=== PATIENT | female | born 1935 | race African-American/Black ===

== ENCOUNTER 2023-08-19 15:32 | Inpatient (IN) | payer MEDICARE, BC ==
[~2023-08-19] VITALS: Ht 160 cm; Wt 51.5 kg
[2023-08-19] MEDS: LORazepam 2MG/ML-1ML VIAL ONE (16:21)
[2023-08-19] MEDS: LORazepam 2MG/ML-1ML VIAL IV ONE (16:22)
[2023-08-19 16:25] VITALS: PULSE 105; RESP 23; O2SAT 93
[2023-08-19] MEDS ORDERED: LORazepam 2MG/ML-1ML VIAL IV PRN (16:30)
[2023-08-19 16:37] LABS: Urine Bacteria None Seen /hpf (None Seen)
[2023-08-19 16:55] LABS: Urine Amorphous Crystal FEW /hpf (None Seen); Urine Blood Negative /uL (Negative); Urine Clarity Clear (Clear); Urine Color Light-Yellow (Yellow); Urine Protein, UAD 1+ (Negative); Urine Specific Gravity 1.014 (1.001-1.035); Urine Urobilinogen Normal (Negative); Urine WBC 2 /hpf (0 - 5); Urine pH 6.5 (5.0-9.0)
[2023-08-19] MEDS: SODIUM CHLORIDE 0.9% 1,000 ML IV ONE (17:00)
[2023-08-19] MEDS: PIPERACILLIN-TAZOB 3.375GM 100 ML IV ONE (17:00)
[2023-08-19 17:31] LABS: Basophils # (auto) 0 10 ^3/uL (0-0.2); Eosinophils # (auto) 0 10 ^3/uL (0-0.8); Nucleated Red Blood Cells % 0.1 %
[2023-08-19 17:34] LABS: Basophils % (auto) 0.2 % (0.0-2.0); Lymphocytes # (auto) 0.9 10 ^3/uL (0.4-5.4); Lymphocytes % (auto) 5.2 % (10.0-50.0); Mean Corpuscular Hemoglobin 27.5 pg (28.0-32.0); Mean Corpuscular Volume 91.7 fL (80.0-100.0); Monocytes # (auto) 0.9 10 ^3/uL (0-1.3); Monocytes % (auto) 5.6 % (0.0-12.0); Neutrophils # (auto) 14.8 10 ^3/uL (1.6-8.6); Red Blood Cells 2.08 10^6/uL (4.0-5.20); White Blood Cell 16.7 10^3/uL (4.4-10.8)
[2023-08-19 17:35] LABS: Hemoglobin 5.7 g/dL (12.2-16.2)
[2023-08-19 17:51] LABS: Alanine Aminotransferase 26 U/L (7-40); Albumin 2.7 g/dL (3.2-4.8); Alkaline Phosphatase 94 U/L (46-116); Anion Gap 10 (5-15); Aspartate Aminotransferase 33 U/L (13-40); BUN/Creatinine Ratio 15.3 (10.0-20.0); Blood Urea Nitrogen 23 mg/dL (9-23); Calcium 8.1 mg/dL (8.7-10.4); Carbon Dioxide 19 mmol/L (20-30); Chloride 116 mmol/L (98-107); Glucose 103 mg/dL (74-106); Lipase 32 U/L (12-53); Magnesium 2.7 mg/dL (1.6-2.6); Sodium 145 mmol/L (136-145)
[2023-08-19 17:52] LABS: Bilirubin, Total < 0.2 mg/dL (0.2-1.0); Total Protein 5.9 g/dL (5.7-8.2)
[2023-08-19 18:31] LABS: Lactic Acid w/Reflex 5.7 mmol/L (0.4-2.0)
[2023-08-19] MEDS: ALBUTEROL SULF 2.5 MG/0.5ML(0.5%) NEB SOLN NEB ONE (19:14)
[2023-08-19 19:52] LABS: Base Excess -3.7 mmol/L (-2.0-2.0)
[2023-08-19 20:11] LABS: Anisocytosis Moderate; Ovalocytes FEW; Platelet Estimate Increased
[2023-08-19] MEDS: CALCIUM GLUC 1,000mg/50ml-NS 50 ML IV ONE (21:01)
[2023-08-19] MEDS: DEXTROSE (50%) 50ML SYRG IV ONE (21:11)
[2023-08-19] MEDS: SODIUM BICARB 8.4% 50Meq/50ml SYR INJ IV ONE (21:12)
[2023-08-19] MEDS: InsuLIN REG 1unit/0.01ml Soln (100units/ml) IV ONE (21:12)
[2023-08-19] MEDS: FUROSEMIDE 20 MG/2 ML VIAL IV ONE (21:26)
[2023-08-19] MEDS: SODIUM ZIRCONIUM CYCL 10 GM PAK PO ONE (21:27)
[2023-08-19] MEDS ORDERED: ONDANSETRON HCL 4 MG/2 ML VIAL IV PRN (21:45)
[2023-08-19] MEDS ORDERED: ACETAMINOPHEN 325 MG TAB PO PRN (21:45)
[2023-08-19] MEDS ORDERED: NITROGLYCERIN 0.4 MG SL TAB SL PRN (21:45)
[2023-08-19] MEDS ORDERED: MORPHINE SULFATE INJ 2 MG/ml SYRG IV PRN (21:45)
[2023-08-19] MEDS: ALBUMIN 25% 100 ML IV ONE (21:55)
[2023-08-19] MEDS: CLINDAMYCIN 600MG IV 50 ML IV SCH (22:43)
[2023-08-19] MEDS: SODIUM CHLORIDE 0.9% 1,000 ML IV SCH (23:02)
[2023-08-19 23:23] VITALS: BP 131/53; PULSE 94; RESP 20; TEMP 97.8
[2023-08-19 23:57] VITALS: BP 138/53; PULSE 95; RESP 15; TEMP 97.5
[2023-08-20] VITALS (13 sets, daily range): BP systolic 108–131; BP diastolic 50–75; PULSE 75–91; RESP 16–20; TEMP 97.4–98.6; O2SAT 93–100
[2023-08-20] MEDS: cefTRIAXone 1GM/50ML D5W 50 ML IV SCH (09:45)
[2023-08-20] MEDS: ASPirin 81 mg TAB PO SCH (09:45)
[2023-08-20 10:46] LABS: Basophils # (auto) 0 10 ^3/uL (0-0.2); Basophils % (auto) 0.1 % (0.0-2.0); Eosinophils # (auto) 0 10 ^3/uL (0-0.8); Eosinophils % (auto) 0.1 % (0.0-7.0); Hematocrit 28.2 % (36.0-46.0); Lymphocytes # (auto) 1.3 10 ^3/uL (0.4-5.4); Lymphocytes % (auto) 11.1 % (10.0-50.0); Mean Corpuscular Hemoglobin 28.5 pg (28.0-32.0); Mean Corpuscular Hgb Conc. 31.9 g/dL (32.0-36.0); Mean Corpuscular Volume 89.3 fL (80.0-100.0); Monocytes # (auto) 0.8 10 ^3/uL (0-1.3); Monocytes % (auto) 7.2 % (0.0-12.0); Neutrophils # (auto) 9.6 10 ^3/uL (1.6-8.6); Neutrophils % (auto) 81.5 % (37.0-80.0); Red Blood Cells 3.16 10^6/uL (4.0-5.20); White Blood Cell 11.7 10^3/uL (4.4-10.8)
[2023-08-20 11:03] LABS: Alanine Aminotransferase 21 U/L (7-40); Alkaline Phosphatase 82 U/L (46-116); Calcium 8.3 mg/dL (8.5-10.1)
[2023-08-20 11:04] LABS: Albumin 3.2 g/dL (3.2-4.8); Anion Gap 9 (5-15); Aspartate Aminotransferase 25 U/L (13-40); BUN/Creatinine Ratio 13.3 (10.0-20.0); Bilirubin, Total 0.5 mg/dL (0.2-1.0); Blood Urea Nitrogen 16 mg/dL (9-23); Carbon Dioxide 22 mmol/L (20-30); Chloride 116 mmol/L (98-107); Glucose 89 mg/dL (74-106); Potassium 4.1 mmol/L (3.5-5.1); Sodium 147 mmol/L (136-145); Total Protein 5.9 g/dL (5.7-8.2)
[2023-08-20] MEDS: FLEET ENEMA(ADULT) 135 ML PR ONE (17:58)
[2023-08-20] MEDS: LACTULOSE 10g/15ml SOLN 473ML PR ONE (17:58)
[2023-08-20] MEDS ORDERED: LOSA-534 PO (19:29)
[2023-08-20] MEDS ORDERED: QUET50TA PO (19:29)
[2023-08-20] MEDS ORDERED: LEV50T PO (19:29)
[2023-08-20] MEDS ORDERED: AMLO1TAB23 PO (19:29)
[2023-08-20] MEDS ORDERED: ASPI-498 OR (19:29)
[2023-08-20] MEDS ORDERED: LORazepam 2MG/ML-1ML VIAL IV PRN ×2 (22:45→23:00)
[2023-08-20 23:24] LABS: LDL Cholesterol 96 mg/dL (< 100); Triglycerides 73 mg/dL (< 150)
[2023-08-20 23:25] LABS: HDL Cholesterol 45 mg/dL (40-59)
[2023-08-20 23:26] LABS: Cholesterol 157 mg/dL (< 200)
[2023-08-21] VITALS (8 sets, daily range): BP systolic 107–140; BP diastolic 35–71; PULSE 73–90; RESP 16–21; TEMP 98.5–98.9; O2SAT 94–100
[2023-08-21 06:40] LABS: Basophils # (auto) 0 10 ^3/uL (0-0.2); Basophils % (auto) 0.1 % (0.0-2.0); Eosinophils # (auto) 0 10 ^3/uL (0-0.8); Eosinophils % (auto) 0.1 % (0.0-7.0); Hematocrit 29.4 % (36.0-46.0); Hemoglobin 9.4 g/dL (12.2-16.2); Lymphocytes # (auto) 0.9 10 ^3/uL (0.4-5.4); Lymphocytes % (auto) 9.2 % (10.0-50.0); Mean Corpuscular Hemoglobin 28.9 pg (28.0-32.0); Mean Corpuscular Volume 90.4 fL (80.0-100.0); Monocytes # (auto) 0.7 10 ^3/uL (0-1.3); Neutrophils # (auto) 8.2 10 ^3/uL (1.6-8.6); Neutrophils % (auto) 83.6 % (37.0-80.0); Nucleated Red Blood Cells % 0.1 %; Red Blood Cells 3.25 10^6/uL (4.0-5.20); White Blood Cell 9.8 10^3/uL (4.4-10.8)
[2023-08-21 06:47] LABS: Anion Gap 10 (5-15); Carbon Dioxide 19 mmol/L (20-30); Chloride 120 mmol/L (98-107); Potassium 4.6 mmol/L (3.5-5.1); Sodium 149 mmol/L (136-145)
[2023-08-21 06:48] LABS: Calcium 7.8 mg/dL (8.5-10.1)
[2023-08-21 06:51] LABS: Red Cell Distribution Width 20.2 % (11.8-14.3)
[2023-08-21 06:52] LABS: Glucose 83 mg/dL (74-106)
[2023-08-21 06:53] LABS: Triglycerides 84 mg/dL (< 150)
[2023-08-21 06:54] LABS: LDL Cholesterol 96 mg/dL (< 100)
[2023-08-21 06:55] LABS: Cholesterol 162 mg/dL (< 200); HDL Cholesterol 49 mg/dL (40-59)
[2023-08-21 07:29] LABS: BUN/Creatinine Ratio 9.2 (10.0-20.0); Blood Urea Nitrogen 11 mg/dL (9-23)
[2023-08-21] MEDS: ASPirin 81 mg TAB PO SCH (09:05)
[2023-08-21] MEDS: levETIRAcetam 500 MG/5ML ORAL SOLN UD GT SCH (09:06)
[2023-08-21] MEDS: D5W 5% 1,000 ML IV SCH (09:45)
[2023-08-22] VITALS (8 sets, daily range): BP systolic 101–137; BP diastolic 55–69; PULSE 59–92; RESP 17–21; TEMP 97.5–98.7; O2SAT 94–100
[2023-08-22] MEDS: ATORVASTATIN 20 MG TAB PO SCH (00:01)
[2023-08-22] MEDS: levETIRAcetam 500 MG/5ML ORAL SOLN UD PO SCH (00:01)
[2023-08-22] MEDS ORDERED: levETIRAcetam 500 MG/5ML ORAL SOLN UD PO SCH (10:00)
[2023-08-22] MEDS: levoFLOXacin 500MG 100 ML IV ONE ×2 (10:40→10:44)
[2023-08-23 04:52] VITALS: BP 114/42; PULSE 91; RESP 18; TEMP 97.9; O2SAT 93
[2023-08-23 08:15] VITALS: PULSE 88
[2023-08-23 08:26] VITALS: BP 110/69; PULSE 81; RESP 16; TEMP 98.9; O2SAT 93
[2023-08-23] MEDS: levoFLOXacin 250MG 50 ML IV SCH (08:37)
[2023-08-23 13:06] VITALS: BP 103/66; PULSE 55; RESP 19; TEMP 98.4; O2SAT 95
[2023-08-23 20:00] VITALS: PULSE 88
[2023-08-23] MEDS: LINEZOLID 600MG/300ML 300 ML IV SCH (23:13)
[2023-08-24] VITALS (7 sets, daily range): BP systolic 121–147; BP diastolic 60–79; PULSE 82–92; RESP 16–20; TEMP 97.8–99; O2SAT 94–100
[2023-08-24 14:09] LABS: Chloride 111 mmol/L (98-107); Potassium 4.1 mmol/L (3.5-5.1); Sodium 139 mmol/L (136-145)
[2023-08-24 14:10] LABS: Anion Gap 8 (5-15); Carbon Dioxide 20 mmol/L (20-30)
[2023-08-24 14:15] LABS: BUN/Creatinine Ratio 8.8 (10.0-20.0); Blood Urea Nitrogen 10 mg/dL (9-23); Glucose 131 mg/dL (74-106)
[2023-08-24 15:44] LABS: Hematocrit 32.5 % (36.0-46.0); Hemoglobin 10.2 g/dL (12.2-16.2); Mean Corpuscular Hgb Conc. 31.4 g/dL (32.0-36.0); Mean Corpuscular Volume 92.3 fL (80.0-100.0); Red Blood Cells 3.52 10^6/uL (4.0-5.20); White Blood Cell 8.4 10^3/uL (4.4-10.8)
[2023-08-24 15:48] LABS: Basophils % (manual) 0 (0.0-2.0); Blast Cells 0; Eosinophils % (manual) 0 (0-7); Metamyelocytes % 0; Myelocytes % 0; Promyelocytes % 0; Reactive Lymphocytes 0
[2023-08-24 17:00] LABS: Anisocytosis Slight; Band Neutrophils % (manual) 4; Lymphocytes % (manual) 12 (10.0-50.0); Monocytes % (manual) 6 (0-12); Platelet Estimate Adequate
[2023-08-24 17:02] LABS: Tear Drop Cells FEW
[2023-08-25] VITALS (9 sets, daily range): BP systolic 127–152; BP diastolic 51–86; PULSE 73–91; RESP 16–18; TEMP 36.6; O2SAT 96–100
[2023-08-25] MEDS ORDERED: LINE1TAB6 PO (08:41)
[2023-08-25] MEDS ORDERED: LEVO500T91 PO (08:41)
[2023-08-25] MEDS ORDERED: LEVE500T40 PO (08:44)
[2023-08-25 15:21] LABS: COVID19 ANTIGEN SOFIA FIA NEGATIVE (NEGATIVE)
[2023-08-26] VITALS (8 sets, daily range): BP systolic 123–151; BP diastolic 59–84; PULSE 83–89; RESP 16–20; TEMP 97.5–98.6; O2SAT 94–100
[2023-08-27] VITALS (7 sets, daily range): BP systolic 123–148; BP diastolic 59–81; PULSE 75–91; RESP 16–20; TEMP 97.6–98.1; O2SAT 93–99
[2023-08-28 01:00] VITALS: BP 141/65; PULSE 79; RESP 18; TEMP 97.9; O2SAT 97
[2023-08-28 05:00] VITALS: BP 122/75; PULSE 82; RESP 18; TEMP 98; O2SAT 98
[2023-08-28 08:00] VITALS: PULSE 73
[2023-08-28 08:50] VITALS: BP 137/70; PULSE 80; RESP 12; TEMP 97; O2SAT 95
[2023-08-28 13:00] VITALS: BP 145/73; PULSE 84; RESP 14; TEMP 97.2; O2SAT 96
== END 2023-08-28 17:08 | disposition home health service (06) | DRG 871 ==
LOC: EDBD 15:32 → ER 15:32 → TELE 21:54 → TELE-CENTR 21:54
PROVIDERS: ADMIT Nurse Practitioner; ATTEND Family Medicine
PROC: 30233N1 Transfusion of Nonautologous Red Blood Cells into Peripheral Vein, Percutaneous Approach (ICD-10-PCS; principal; 2023-08-19)
PROC: 05HA33Z Insertion of Infusion Device into Left Brachial Vein, Percutaneous Approach (ICD-10-PCS; 2023-08-25)
PROC: B54NZZA Ultrasonography of Left Upper Extremity Veins, Guidance (ICD-10-PCS; 2023-08-25)
DX: A41.9 Sepsis, unspecified organism (principal); G93.41 Metabolic encephalopathy; I21.A1 Myocardial infarction type 2; R65.21 Severe sepsis with septic shock; N17.9 Acute kidney failure, unspecified; E72.20 Disorder of urea cycle metabolism, unspecified; E87.1 Hypo-osmolality and hyponatremia; L89.220 Pressure ulcer of left hip, unstageable; D64.9 Anemia, unspecified; E03.9 Hypothyroidism, unspecified; E87.5 Hyperkalemia; R56.9 Unspecified convulsions; E88.09 Other disorders of plasma-protein metabolism, not elsewhere classified; E86.0 Dehydration; Z66 Do not resuscitate; B96.4 Proteus (mirabilis) (morganii) as the cause of diseases classified elsewhere; Z20.822 Contact with and (suspected) exposure to COVID-19; B95.2 Enterococcus as the cause of diseases classified elsewhere; I34.0 Nonrheumatic mitral (valve) insufficiency; F03.C0 Unspecified dementia, severe, without behavioral disturbance, psychotic disturbance, mood disturbance, and anxiety; I10 Essential (primary) hypertension; Z74.01 Bed confinement status; Z83.3 Family history of diabetes mellitus; Z79.82 Long term (current) use of aspirin; Z79.899 Other long term (current) drug therapy; Z85.038 Personal history of other malignant neoplasm of large intestine; Z86.73 Personal history of transient ischemic attack (TIA), and cerebral infarction without residual deficits; Z51.5 Encounter for palliative care
CPT/HCPCS: 36415; 36600; 70450; 71045; 80048; 80053; 80061; 81001; 82140; 82805; 82962; 83036; 83605; 83690; 83735; 84132; 84443; 84484; 85007; 85025; 85027; 86850; 86900; 86901; 86920; 87040; 87077; 87081; 87086; 87186; 87205; 87426; 92610; 93005; 93306; 94640; 99291; 99292; G0378; J1815; J1956; J2543; J3490; P9047

== ENCOUNTER 2023-09-05 19:53 | Inpatient (IN) | payer OTHER, MEDICARE, BC ==
[~2023-09-05] VITALS: Ht 162.6 cm; Wt 65.4 kg
[~2023-09-05 19:53] MED LIST: AMLO1TAB23 PO; ASPI-498 OR; LEV50T PO; LEVE500T40 PO; LOSA-534 PO; QUET50TA PO
[2023-09-05] MEDS: IOHEXOL 350 MG/ML 100ML IJ ONE (20:27)
[2023-09-05 21:11] LABS: Basophils # (auto) 0 10 ^3/uL (0-0.2); Basophils % (auto) 0.2 % (0.0-2.0); Eosinophils # (auto) 0 10 ^3/uL (0-0.8); Lymphocytes # (auto) 1.6 10 ^3/uL (0.4-5.4); Mean Corpuscular Volume 90.1 fL (80.0-100.0); Monocytes # (auto) 0.1 10 ^3/uL (0-1.3); White Blood Cell 4.1 10^3/uL (4.4-10.8)
[2023-09-05 21:13] LABS: Eosinophils % (auto) 0.4 % (0.0-7.0); Hematocrit 21.9 % (36.0-46.0); Lymphocytes % (auto) 38.6 % (10.0-50.0); Mean Corpuscular Hemoglobin 28.5 pg (28.0-32.0); Mean Corpuscular Hgb Conc. 31.7 g/dL (32.0-36.0); Neutrophils # (auto) 2.4 10 ^3/uL (1.6-8.6); Neutrophils % (auto) 57.8 % (37.0-80.0); Nucleated Red Blood Cells % 0.2 %; Red Blood Cells 2.43 10^6/uL (4.0-5.20); Red Cell Distribution Width 19.4 % (11.8-14.3)
[2023-09-05 21:20] LABS: Alanine Aminotransferase 14 U/L (7-40); Albumin 2.8 g/dL (3.2-4.8); Alkaline Phosphatase 95 U/L (46-116); Anion Gap 8 (5-15); Aspartate Aminotransferase 22 U/L (13-40); BUN/Creatinine Ratio 13.8 (10.0-20.0); Blood Urea Nitrogen 17 mg/dL (9-23); Calcium 8.5 mg/dL (8.7-10.4); Carbon Dioxide 22 mmol/L (20-30); Chloride 108 mmol/L (98-107); Glucose 104 mg/dL (74-106); Lipase 50 U/L (12-53); Potassium 4.7 mmol/L (3.5-5.1); Sodium 138 mmol/L (136-145)
[2023-09-05 21:21] LABS: Bilirubin, Total 0.2 mg/dL (0.2-1.0)
[2023-09-05 21:27] LABS: Hemoglobin 6.9 g/dL (12.2-16.2)
[2023-09-05 21:29] LABS: INR 1.01 (0.9-1.15); Partial Thromboplastin Time 33.7 SEC (24.5-34.5); Prothrombin Time 10.7 sec (9.3-11.8)
[2023-09-05 21:53] LABS: Lactic Acid w/Reflex 3.6 mmol/L (0.4-2.0)
[2023-09-05 22:08] LABS: % Iron Saturation 57.3 % (15-50)
[2023-09-05 22:28] LABS: Ferritin 775.8 ng/mL (10-291)
[2023-09-06] VITALS (14 sets, daily range): BP systolic 126–162; BP diastolic 41–91; PULSE 79–99; RESP 14–23; TEMP 97.5–99.2; O2SAT 90–100
[2023-09-06] MEDS: SODIUM CHLORIDE 0.9% 1,000 ML IV ONE (00:16)
[2023-09-06] MEDS ORDERED: HYDROcodone-ACET 5/325MG TAB PO PRN (00:30)
[2023-09-06] MEDS ORDERED: DOCUSATE SOD 100 MG CAP PO PRN (00:30)
[2023-09-06] MEDS ORDERED: ONDANSETRON HCL 4 MG/2 ML VIAL IV PRN (00:30)
[2023-09-06] MEDS ORDERED: ACETAMINOPHEN 325 MG TAB PO PRN (00:30)
[2023-09-06] MEDS: SODIUM CHLORIDE 0.9% 1,000 ML IV SCH (03:18)
[2023-09-06] MEDS ORDERED: NITROGLYCERIN 0.4 MG SL TAB SL PRN (04:00)
[2023-09-06] MEDS ORDERED: MORPHINE SULFATE INJ 2 MG/ml SYRG IV PRN (04:00)
[2023-09-06 04:44] LABS: Urine Bacteria MOD /hpf (None Seen); Urine Blood Negative /uL (Negative); Urine Budding Yeast MANY /hpf (None Seen); Urine Clarity Turbid (Clear); Urine Color Straw (Yellow); Urine Protein, UAD TRACE (Negative); Urine Specific Gravity 1.025 (1.001-1.035); Urine Urobilinogen Normal (Negative); Urine WBC 26 /hpf (0 - 5); Urine pH 5.5 (5.0-9.0)
[2023-09-06] MEDS: SODIUM CHLORIDE 0.9% 500 ML IV ONE (04:54)
[2023-09-06 05:25] LABS: Basophils # (auto) 0 10 ^3/uL (0-0.2); Basophils % (auto) 0.2 % (0.0-2.0); Eosinophils # (auto) 0 10 ^3/uL (0-0.8); Hemoglobin 8.1 g/dL (12.2-16.2); Lymphocytes # (auto) 1.4 10 ^3/uL (0.4-5.4); Mean Corpuscular Hemoglobin 28.5 pg (28.0-32.0); Monocytes # (auto) 0.2 10 ^3/uL (0-1.3); Neutrophils # (auto) 3.3 10 ^3/uL (1.6-8.6)
[2023-09-06 05:27] LABS: Hematocrit 25.6 % (36.0-46.0); Lymphocytes % (auto) 28.8 % (10.0-50.0); Mean Corpuscular Hgb Conc. 31.6 g/dL (32.0-36.0); Mean Corpuscular Volume 90.3 fL (80.0-100.0); Monocytes % (auto) 3.7 % (0.0-12.0); Neutrophils % (auto) 67.3 % (37.0-80.0); Nucleated Red Blood Cells % 0.2 %; Red Blood Cells 2.84 10^6/uL (4.0-5.20); Red Cell Distribution Width 18.5 % (11.8-14.3)
[2023-09-06 05:49] LABS: Alanine Aminotransferase 13 U/L (7-40); Albumin 2.8 g/dL (3.2-4.8); Alkaline Phosphatase 93 U/L (46-116); Anion Gap 8 (5-15); Aspartate Aminotransferase 16 U/L (13-40); BUN/Creatinine Ratio 13.4 (10.0-20.0); Bilirubin, Total 0.4 mg/dL (0.2-1.0); Blood Urea Nitrogen 16 mg/dL (9-23); Calcium 8.5 mg/dL (8.7-10.4); Carbon Dioxide 21 mmol/L (20-30); Chloride 110 mmol/L (98-107); Glucose 101 mg/dL (74-106); Potassium 4.5 mmol/L (3.5-5.1); Sodium 139 mmol/L (136-145); Total Protein 5.8 g/dL (5.7-8.2)
[2023-09-06] MEDS: LEVOTHYROXINE SODIUM 50 MCG TAB PO SCH (07:00)
[2023-09-06 07:11] LABS: Lactic Acid w/Reflex 2.3 mmol/L (0.4-2.0)
[2023-09-06 07:43] LABS: COVID19 ANTIGEN SOFIA FIA NEGATIVE (NEGATIVE)
[2023-09-06 09:50] LABS: Hematocrit 32.7 % (36.0-46.0); Hemoglobin 10.7 g/dL (12.2-16.2)
[2023-09-06] MEDS: ASPirin 81 mg TAB PO SCH (10:00)
[2023-09-06] MEDS: levETIRAcetam 500 mg/100ml 100 ML IV SCH (10:37)
[2023-09-06] MEDS ORDERED: CEFP200T15 PO (15:45)
[2023-09-06] MEDS ORDERED: LEVE500T3 PO (15:45)
[2023-09-06] MEDS ORDERED: DOXY-267 PO (15:45)
[2023-09-06] MEDS ORDERED: ACYC200C22 PO (15:45)
[2023-09-06] MEDS ORDERED: LINE1TAB10 PO (15:45)
[2023-09-07] VITALS (10 sets, daily range): BP systolic 92–194; BP diastolic 38–80; PULSE 72–98; RESP 14–18; TEMP 96.7–98; O2SAT 92–98
[2023-09-07] MEDS: levoFLOXacin 500MG 100 ML IV ONE (10:15)
[2023-09-07 10:16] LABS: Basophils # (auto) 0 10 ^3/uL (0-0.2); Basophils % (auto) 0.2 % (0.0-2.0); Eosinophils # (auto) 0 10 ^3/uL (0-0.8); Eosinophils % (auto) 0.6 % (0.0-7.0); Hematocrit 34.2 % (36.0-46.0); Lymphocytes # (auto) 1.3 10 ^3/uL (0.4-5.4); Lymphocytes % (auto) 37.1 % (10.0-50.0); Mean Corpuscular Hemoglobin 28.9 pg (28.0-32.0); Mean Corpuscular Hgb Conc. 32.1 g/dL (32.0-36.0); Mean Corpuscular Volume 90.2 fL (80.0-100.0); Monocytes # (auto) 0.1 10 ^3/uL (0-1.3); Monocytes % (auto) 4.2 % (0.0-12.0); Neutrophils % (auto) 57.9 % (37.0-80.0); Nucleated Red Blood Cells % 0.2 %; Red Blood Cells 3.79 10^6/uL (4.0-5.20); Red Cell Distribution Width 17.6 % (11.8-14.3); White Blood Cell 3.5 10^3/uL (4.4-10.8)
[2023-09-07 10:18] LABS: Alanine Aminotransferase 17 U/L (7-40); Alkaline Phosphatase 104 U/L (46-116); Anion Gap 8 (5-15); Aspartate Aminotransferase 40 U/L (13-40); BUN/Creatinine Ratio 12.7 (10.0-20.0); Blood Urea Nitrogen 15 mg/dL (9-23); Calcium 8.4 mg/dL (8.5-10.1); Carbon Dioxide 21 mmol/L (20-30); Chloride 113 mmol/L (98-107); Glucose 120 mg/dL (74-106); Potassium 4.2 mmol/L (3.5-5.1); Sodium 142 mmol/L (136-145)
[2023-09-07 10:19] LABS: Bilirubin, Total 0.4 mg/dL (0.2-1.0); Total Protein 6.4 g/dL (5.7-8.2)
[2023-09-07 10:59] LABS: Folate (Folic Acid) 21.68 ng/mL (>5.38)
[2023-09-07] MEDS: MORPHINE SULFATE INJ 2 MG/ml SYRG IV PRN (11:36)
[2023-09-07] MEDS: Ensure HIGH Protein Chocolate 8oz Bottle PO SCH (12:02)
[2023-09-07] MEDS: hydrALAZINE HCL 20 MG/ML VL IV PRN (16:19)
[2023-09-07] MEDS: LINEZOLID 600MG/300ML 300 ML IV SCH (21:44)
[2023-09-08] VITALS (10 sets, daily range): BP systolic 101–155; BP diastolic 42–80; PULSE 68–109; RESP 17–20; TEMP 97.1–98.6; O2SAT 92–100
[2023-09-08] MEDS: LEVOTHYROXINE SODIUM 88 MCG TAB PO SCH (06:11)
[2023-09-08 06:47] LABS: Chloride 113 mmol/L (98-107); Potassium 4.6 mmol/L (3.5-5.1); Sodium 141 mmol/L (136-145)
[2023-09-08 06:48] LABS: Anion Gap 9 (5-15); Calcium 8.6 mg/dL (8.5-10.1); Carbon Dioxide 19 mmol/L (20-30)
[2023-09-08 06:49] LABS: Basophils # (auto) 0 10 ^3/uL (0-0.2); Basophils % (auto) 0.1 % (0.0-2.0); Eosinophils # (auto) 0 10 ^3/uL (0-0.8); Hematocrit 32.2 % (36.0-46.0); Hemoglobin 10.3 g/dL (12.2-16.2); Lymphocytes # (auto) 1.7 10 ^3/uL (0.4-5.4); Lymphocytes % (auto) 53.1 % (10.0-50.0); Mean Corpuscular Hemoglobin 28.2 pg (28.0-32.0); Mean Corpuscular Hgb Conc. 31.9 g/dL (32.0-36.0); Mean Corpuscular Volume 88.3 fL (80.0-100.0); Monocytes # (auto) 0.2 10 ^3/uL (0-1.3); Neutrophils # (auto) 1.3 10 ^3/uL (1.6-8.6); Neutrophils % (auto) 39.8 % (37.0-80.0); Nucleated Red Blood Cells % 0.5 %; Red Blood Cells 3.65 10^6/uL (4.0-5.20); White Blood Cell 3.2 10^3/uL (4.4-10.8)
[2023-09-08 06:53] LABS: Blood Urea Nitrogen 14 mg/dL (9-23); Glucose 100 mg/dL (74-106)
[2023-09-08] MEDS: levoFLOXacin 250MG 50 ML IV SCH (09:38)
[2023-09-08] MEDS ORDERED: levoFLOXacin 250MG 50 ML IV SCH (10:00)
[2023-09-09 01:00] VITALS: BP 140/61; PULSE 110; RESP 20; TEMP 97.9; O2SAT 100
[2023-09-09 05:01] VITALS: BP 120/52; PULSE 97; RESP 20; TEMP 79.9; O2SAT 98
[2023-09-09 08:00] VITALS: PULSE 76; RESP 18
[2023-09-09 09:00] VITALS: BP 116/44; PULSE 76; RESP 18; TEMP 98.8; O2SAT 94
[2023-09-09] MEDS: MICAFUNGIN SODIUM 100 MG in SODIUM CHL 0.9% 100 ML IV ONE (10:45)
[2023-09-09] MEDS: CATHFLO ACTIVASE (ALTEPLASE) 2 MG VIAL IV ONE (11:48)
[2023-09-09 13:00] VITALS: BP 114/50; PULSE 96; RESP 17; TEMP 98.3; O2SAT 90
[2023-09-09 16:12] LABS: Basophils # (auto) 0 10 ^3/uL (0-0.2); Basophils % (auto) 0.1 % (0.0-2.0); Eosinophils # (auto) 0 10 ^3/uL (0-0.8); Eosinophils % (auto) 0.2 % (0.0-7.0); Hematocrit 27.1 % (36.0-46.0); Hemoglobin 8.8 g/dL (12.2-16.2); Lymphocytes # (auto) 1.4 10 ^3/uL (0.4-5.4); Lymphocytes % (auto) 43.6 % (10.0-50.0); Mean Corpuscular Hemoglobin 28.5 pg (28.0-32.0); Mean Corpuscular Hgb Conc. 32.3 g/dL (32.0-36.0); Mean Corpuscular Volume 88.3 fL (80.0-100.0); Monocytes # (auto) 0.2 10 ^3/uL (0-1.3); Monocytes % (auto) 7.5 % (0.0-12.0); Neutrophils # (auto) 1.6 10 ^3/uL (1.6-8.6); Neutrophils % (auto) 48.6 % (37.0-80.0); Nucleated Red Blood Cells % 0.1 %; Red Blood Cells 3.07 10^6/uL (4.0-5.20); Red Cell Distribution Width 16.7 % (11.8-14.3); White Blood Cell 3.3 10^3/uL (4.4-10.8)
== END 2023-09-09 18:01 | disposition home health service (06) | DRG 811 ==
LOC: EDSEX 19:53 → ER 19:53 → EDBD 19:53 → TELE 09-06 03:49 → TELE-EAST 09-06 15:08
PROVIDERS: ADMIT Internal Medicine; ATTEND Internal Medicine
PROC: 30233N1 Transfusion of Nonautologous Red Blood Cells into Peripheral Vein, Percutaneous Approach (ICD-10-PCS; principal; 2023-09-06)
PROC: 05HC33Z Insertion of Infusion Device into Left Basilic Vein, Percutaneous Approach (ICD-10-PCS; 2023-09-09)
PROC: B54NZZA Ultrasonography of Left Upper Extremity Veins, Guidance (ICD-10-PCS; 2023-09-09)
DX: D62 Acute posthemorrhagic anemia (principal); L89.894 Pressure ulcer of other site, stage 4; R53.2 Functional quadriplegia; E87.20 Acidosis, unspecified; E44.0 Moderate protein-calorie malnutrition; I25.10 Atherosclerotic heart disease of native coronary artery without angina pectoris; F03.90 Unspecified dementia, unspecified severity, without behavioral disturbance, psychotic disturbance, mood disturbance, and anxiety; I10 Essential (primary) hypertension; N28.1 Cyst of kidney, acquired; E03.9 Hypothyroidism, unspecified; R26.81 Unsteadiness on feet; R56.9 Unspecified convulsions; Z20.822 Contact with and (suspected) exposure to COVID-19; Z79.82 Long term (current) use of aspirin; Z79.899 Other long term (current) drug therapy; Z78.9 Other specified health status; Z86.73 Personal history of transient ischemic attack (TIA), and cerebral infarction without residual deficits; Z74.01 Bed confinement status; Z68.21 Body mass index [BMI] 21.0-21.9, adult
CPT/HCPCS: 36415; 71045; 74177; 80048; 80053; 81001; 82607; 82728; 82746; 83540; 83550; 83605; 83615; 83690; 84484; 85014; 85018; 85025; 85045; 85610; 85730; 86850; 86900; 86901; 86920; 87040; 87081; 87426; G0378; J2248